=== PATIENT | female | born 1990 | race Caucasian/White ===

== ENCOUNTER 2019-12-31 10:29 | Emergency (ER) | payer OTHER, SELFPAY ==
[2019-12-31 10:48] VITALS: BP 129/86; PULSE 85; RESP 16; TEMP 36.1; O2SAT 100
--- NOTE | 2019-12-31 11:17 | ED.URI ---
HPI - URI/Sore Throat General Chief Complaint: Upper Respiratory Infection Stated Complaint: Ear/Nose/Throat Time Seen by Provider: 12/31/19 11:17 Source: patient and family History of Present Illness HPI Narrative: Patient presents with fever cough sore throat and runny nose for the past 2 days. No shortness of breath no chest pain. Has not taken thing [id number] for symptoms. No trouble swallowing no drooling. Normally healthy individual. Related Data Home Medications Medication Instructions Recorded Confirmed No Home Medications 12/31/19 12/31/19 Allergies Allergy/AdvReac Type Severity Reaction Status Date / Time azithromycin [From Zithromax] Allergy Hives Verified 12/31/19 10:53 meperidine [From Demerol] Allergy Unknown Verified 12/31/19 10:53 Penicillins Allergy Rash Verified 12/31/19 10:53 codeine AdvReac Nausea and Verified 12/31/19 10:53 Vomiting Review of Systems Review of Systems: Narrative: CONSTITUTIONAL: Denies fever, chills, or sweats. EYES: Denies visual changes, redness, or discharge. ENT: Denies rhinorrhea, congestion, sore throat, or otalgia. CARDIOVASCULAR: Denies chest pain, palpitations, or edema. RESPIRATORY: Denies cough or dyspnea. GASTROINTESTINAL: Denies abdominal pain, nausea, vomiting, or diarrhea. GENITOURINARY: Denies dysuria or hematuria. SKIN: Denies rash or itching. MUSCULOSKELETAL: Denies back pain, joint pain, or myalgia. NEUROLOGIC: Denies headache, numbness, or weakness. PSYCHIATRIC: Denies anxiety or depression. [facility] Social History Social History Smoking status: Never smoker Comments At time of signature, agree with nursing past medical, surgical, social and family history. There is no relevant family history pertinent to the presenting complaint Exam Narrative: Exam Narrative: GENERAL: Well-appearing, well-nourished, and in no acute distress. HEAD: Normocephalic, atraumatic. EYES: PERRLA and EOMI. ENT: Nares clear, no rhinorrhea or epistaxis. Mucous membranes moist. NECK: Supple. CHEST: Clear to auscultation. No respiratory distress. HEART: Regular rate and rhythm. No murmur heard. Normal peripheral pulses. ABDOMEN: Soft, nontender, nondistended, normal active bowel sounds. EXTREMITIES: Normal range of motion. No edema. SKIN: Warm, dry, no rash. NEURO: No focal deficits. Alert and oriented x3. [place] Coma Scale Eye Opening: Spontaneous 4 [place] Coma Scale Motor: Obeys Commands 6 [place] Coma Scale Verbal: Oriented 5 [place] Coma Scale Total 15 Course Vital Signs Vital signs: Vital Signs Temperature 36.1 C L 12/31/19 10:48 Pulse Rate 85 12/31/19 10:48 Respiratory Rate 16 12/31/19 10:48 Blood Pressure 129/86 12/31/19 10:48 Pulse Oximetry 100 12/31/19 10:48 Temperature 36.1 C L 12/31/19 10:48 Pulse Rate 85 12/31/19 10:48 Respiratory Rate 16 12/31/19 10:48 Blood Pressure 129/86 12/31/19 10:48 Pulse Oximetry 100 12/31/19 10:48 Please GIOVANNA schedule a followup visit with your personal physician for further evaluation and treatment. Including recheck and discussion of your blood pressure. If your symptoms persist, change or worsen significantly before you can contact your personal physician then please, without delay, go to the emergency department for further evaluation MDM - URI/Sore Throat Differential Diagnosis Differential diagnosis: Likely upper respiratory infection, otitis media, sinusitis, viral infection, bronchitis, influenza and pharyngitis Lab Data Labs: Influenza A Screen Negative Reference Range: Negative Influenza B Screen Negative Reference Range: Negative Strep Screen Presumptive Negative *(Reference Range: Negative)* Critical Care Time Critical Care Time Critical Care Time: No Discharge Plan Discharge Clinical Impression: Viral infection Upper respiratory infe
== END 2019-12-31 11:32 | disposition home or self-care (01) ==
PROVIDERS: Emergency Provider Nurse Practitioner Family
DX: B34.9 Viral infection, unspecified (principal); J06.9 Acute upper respiratory infection, unspecified
CPT/HCPCS: 87081; 87804; 87880; 99213; G0463

== ENCOUNTER 2023-11-01 08:21 | Emergency (ER) | payer OTHER, SELFPAY ==
--- NOTE | 2023-11-01 08:23 | ED.FEMALEGU ---
HPI - Female Genitourinary General Chief complaint: Urogenital-Female Stated complaint: Poss UTI Source: patient and RN notes reviewed Mode of arrival: ambulatory Limitations: no limitations History of Present Illness HPI Narrative: Patient is a 33-year-old female who presents to the [facility] with complaints of dysuria and vaginal discharge. Patient reports a white vaginal discharge. She states that the vaginal discharge started shortly after having intercourse with her . She states that they did use a dildo that was new the last time they had intercourse. She also reports dysuria and urinary frequency. She denies hematuria or flank pain. Denies recent fevers. She states that she does not have concerns about STDs at this time. Related Data Allergies Allergy/AdvReac Type Severity Reaction Status Date / Time azithromycin [From Zithromax] Allergy Intermediate Hives Verified 11/01/23 08:37 Penicillins Allergy Intermediate Hives Verified 11/01/23 08:37 meperidine [From Demerol] Allergy Unknown Unknown Verified 11/01/23 08:37 codeine AdvReac Intermediate Nausea and Verified 11/01/23 08:37 Vomiting Review of Systems Review of Systems: CONSTITUTIONAL: Denies fever, chills, or sweats. EYES: Denies visual changes, redness, or discharge. ENT: Denies otalgia and sore throat CARDIOVASCULAR: Denies chest pain, palpitations, or edema. RESPIRATORY: Denies cough or dyspnea. GASTROINTESTINAL: Denies abdominal pain, nausea, vomiting, or diarrhea. GENITOURINARY: Reports vaginal discharge and dysuria. Denies hematuria. SKIN: Denies rash or itching. MUSCULOSKELETAL: Denies back pain, joint pain, or myalgia. NEUROLOGIC: Denies headache, numbness, or weakness. Pertinent positives per HPI. PMFSH Social History Social History Smoking status: Never smoker Comments At the time of my signature, I reviewed and agree with the nursing past medical, surgical, social, and family history. There is no relevant family history pertinent to the patient complaint. Exam Narrative: GENERAL: This is a well-nourished, well-developed patient, in no apparent distress. HEAD: normocephalic, atraumatic. EYES: PERRL. Sclera clear/white. Vision is grossly intact. EARS: External ears normal, auditory canals clear and without drainage, TMs normal without perforation. Hearing grossly intact. NOSE: External nose normal with no obvious nasal discharge, nares without redness, no rhinorrhea. THROAT: Mucous membranes moist, posterior pharynx clear. NECK: Neck supple, non-tender without lymphadenopathy, masses or thyromegaly. CARDIOVASCULAR: Regular rate and rhythm without murmurs, gallops, or rubs. RESPIRATORY: Clear to auscultation. Breath sounds equal bilaterally. No wheezes, rales, or rhonchi. GASTROINTESTINAL: Abdomen soft, non-tender, nondistended. Bowel sounds are active. No hepato-splenomegaly, or palpable masses. No guarding. SKIN: warm, intact with no suspicious lesions or rash, good texture and turgor. NEURO: awake, alert, and oriented to person, place and time. There were no obvious focal neurologic abnormalities. EXTREMITIES: No clubbing, cyanosis, or edema. No joint tenderness, effusion, or edema noted. BACK: Nontender without deformity or crepitance. No flank tenderness. Course Course Level of Care: Express Care Visit Vital Signs Vital signs: Vital Signs Temperature 98.0 F 11/01/23 08:28 Pulse Rate 88 11/01/23 08:28 Respiratory Rate 20 11/01/23 08:28 Blood Pressure 135/88 11/01/23 08:28 Pulse Oximetry 100 11/01/23 08:28 Oxygen Delivery Room Air 11/01/23 08:28 Temperature 98.0 F 11/01/23 08:28 Pulse Rate 88 11/01/23 08:28 Respiratory Rate 20 11/01/23 08:28 Blood Pressure 135/88 11/01/23 08:28 Pulse Oximetry 100 11/01/23 08:28 Oxygen Delivery Room Air 11/01/23 08:28 Reviewed MDM - Female Genitourinary MDM Narrative Medical d
[2023-11-01 08:28] VITALS: BP 135/88; PULSE 88; RESP 20; TEMP 36.7; O2SAT 100
== END 2023-11-01 08:50 | disposition home or self-care (01) ==
PROVIDERS: Emergency Provider Nurse Practitioner
DX: B37.31 Acute candidiasis of vulva and vagina (principal); N30.01 Acute cystitis with hematuria
CPT/HCPCS: 81003; 87086; 87088; 99213; G0463

== ENCOUNTER 2024-08-18 15:58 | Emergency (ER) | payer SELFPAY ==
[2024-08-18 16:12] VITALS: BP 126/70; PULSE 86; RESP 20; TEMP 36.9; O2SAT 97
--- NOTE | 2024-08-18 16:14 | ED.URI ---
HPI - URI/Sore Throat General Chief Complaint: Upper Respiratory Infection Stated Complaint: throat/ears History of Present Illness HPI Narrative: 34-year-old female presented for complaint of sore throat bilateral ear pain. Onset today. Endorses painful swallow. She denies any cough, shortness of breath, wheezing, nausea, vomiting, fevers or chills. Taking DayQuil and NyQuil for symptoms. Children with similar symptoms. Related Data Allergies Allergy/AdvReac Type Severity Reaction Status Date / Time azithromycin [From Zithromax] Allergy Intermediate Hives Verified 11/01/23 08:37 Penicillins Allergy Intermediate Hives Verified 11/01/23 08:37 meperidine [From Demerol] Allergy Unknown Unknown Verified 11/01/23 08:37 codeine AdvReac Intermediate Nausea and Verified 11/01/23 08:37 Vomiting Review of Systems Review of Systems: CONSTITUTIONAL: Denies body aches, fever, chills, or sweats. EYES: Denies visual changes, redness, or discharge. ENT: Reports throat pain Denies rhinorrhea, congestion CARDIOVASCULAR: Denies chest pain, palpitations, or edema. RESPIRATORY: Denies dyspnea. GASTROINTESTINAL: Denies abdominal pain, nausea, vomiting, or diarrhea. SKIN: Denies rash, itching, or wounds. MUSCULOSKELETAL: Denies back pain, joint pain, or myalgia. NEUROLOGIC: Denies headache PMFSH Social History Social History Smoking status: Never smoker Exam Narrative: GENERAL: mildly Ill-appearing, no acute distress. EYES: conjunctivae clear ENT: Mucous membranes moist. TMs pearly osuna with normal light reflex bilaterally; no tragal tenderness. Oropharynx erythematous without lesions. Tonsils enlarged 1+ and without exudate. No drooling, no hoarseness, no trismus, uvula midline. No tripod positioning, hot potato voice, or soft palate swelling. NECK: Supple. No lymphadenopathy CHEST: Clear to auscultation, breath sounds equal. No respiratory distress, speaks in full sentences. HEART: Regular rate and rhythm. No murmur heard. SKIN: Warm, dry, no rash. NEURO: Alert and oriented x3. Course Course Emergency Course: Patient is aware of diagnosis, understands and agrees to treatment plan. Anticipatory guidance given. Patient agrees to follow-up as directed and is aware of reasons to seek care at the emergency department. Portions of this record may have been created with voice recognition software Level of Care: Express Care Visit Vital Signs Vital signs: Vital Signs Temperature 98.4 F 08/18/24 16:12 Pulse Rate 86 08/18/24 16:12 Respiratory Rate 20 08/18/24 16:12 Blood Pressure 126/70 08/18/24 16:12 Pulse Oximetry 97 08/18/24 16:12 Oxygen Delivery Room Air 08/18/24 16:12 Temperature 98.4 F 08/18/24 16:12 Pulse Rate 86 08/18/24 16:12 Respiratory Rate 20 08/18/24 16:12 Blood Pressure 126/70 08/18/24 16:12 Pulse Oximetry 97 08/18/24 16:12 Oxygen Delivery Room Air 08/18/24 16:12 MDM - URI/Sore Throat MDM Narrative Medical decision making narrative: POS strep result reviewed with pt. Advise supportive treatments. Patient is appropriate for outpatient treatment and follow-up. Differential Diagnosis Differential diagnosis: Likely upper respiratory infection, viral infection and pharyngitis Lab Data Labs: Lab Results 08/18/24 Range/Units 16:32 POC Grp A Strep Screen Positive (Negative) Discharge Plan Discharge Clinical Impression: Strep pharyngitis Patient Disposition: Home, Self-Care Condition: Stable Instructions: Antibiotic Form, Strep Throat (ED) Additional Instructions: - Take the antibiotic as directed. Fever and sore throat typically resolve within one to three days. Most patients can return to work, after 12 to 24 hours of antibiotic therapy, provided you are fever free and otherwise well. -Eat and drink things that are easy to swallow, like soft foods, cook helper preserves
[2024-08-18 16:48] LABS: EDSTREPNEGPOS1 Positive (Negative)
== END 2024-08-18 17:19 | disposition home or self-care (01) ==
PROVIDERS: Emergency Provider Nurse Practitioner Family
DX: J02.0 Streptococcal pharyngitis (principal)
CPT/HCPCS: 87880; 99213; G0463

== ENCOUNTER 2024-12-24 11:52 | Emergency (ER) | payer MEDICAID, OTHER, SELFPAY ==
[2024-12-24 12:06] VITALS: BP 124/84; PULSE 78; RESP 18; TEMP 36.6; O2SAT 99
--- NOTE | 2024-12-24 13:43 | ED_ITS ---
HPI - URI/Sore Throat General Chief Complaint: Upper Respiratory Infection Stated Complaint: throat scratchy and sore Time Seen by Provider: 12/24/24 13:30 Source: patient, RN notes reviewed and old records reviewed Mode of arrival: ambulatory Limitations: no limitations History of Present Illness HPI Narrative: 34 year old female presents to [facility] care with complaints of sore scratchy throat which started last night, has not had any fevers or body aches or any cough. Mother reports that she has been taking DayQuil for her symptoms. MD elicited complaint: sore throat Onset (ago): day(s) (last night) Pain scale (0-10): 3 Able to tolerate fluids by mouth: Yes Exacerbating factors: swallowing Treatments prior to arrival: other (DayQuil) Related Data Allergies Allergy/AdvReac Type Severity Reaction Status Date / Time azithromycin (From Zithromax) Allergy Intermediate Hives Verified 11/01/23 08:37 Penicillins Allergy Intermediate Hives Verified 11/01/23 08:37 meperidine (From Demerol) Allergy Unknown Unknown Verified 11/01/23 08:37 codeine AdvReac Intermediate Nausea and Verified 11/01/23 08:37 Vomiting Review of Systems Review of Systems: CONSTITUTIONAL: Denies malaise, chills, sweats, or fever. EYES: Denies visual changes, redness, or discharge. ENT: Reports rhinorrhea, congestion,no sinus pain,no otalgia and positive for sore throat. CARDIOVASCULAR: Denies chest pain, palpitations, or edema. RESPIRATORY: Reports no cough.? Denies dyspnea. GASTROINTESTINAL: Denies abdominal pain, nausea, vomiting, diarrhea SKIN: Denies rash or itching. MUSCULOSKELETAL: Denies myalgia. NEUROLOGIC: Denies headache. All systems reviewed & are unremarkable except as noted in HPI and below PMFSH Past Medical History Medical History (Updated 12/25/24 @ 20:20 by Dianne Mota NP) Urinary tract infection Strep pharyngitis Social History Social History (Updated 12/25/24 @ 20:20 by Dianne Mota NP) Smoking status: Never smoker Alcohol intake: current Alcohol use details: rare social Substance use type: does not use Living arrangements: with family Gender identity (if verbalized by the patient): Female Comments At time of signature, agree with nursing past medical, surgical, social and family history. There is no relevant family history pertinent to the presenting complaint Exam Narrative: GENERAL: Well-appearing, well-nourished, and in no acute distress. HEAD: Normocephalic EYES: PERRLA, conjunctivae clear ENT: Nares clear, turbinates edematous and erythematous, clear discharge. Mucous membranes moist. TM pearly osuna with dull light reflex bilaterally; no tragal tenderness. Oropharynx erythematous without lesions. Tonsils red minimally enlarged and throat without exudate, no drooling, no hoarseness, no trismus, uvula midline. NECK: Supple. No lymphadenopathy CHEST: Clear to auscultation, breath sounds equal. No wheezing, rhonchi, rales, or stridor. No respiratory distress, speaks in full sentences.no cough noted SAO2 99% on room air HEART: Regular rate and rhythm. No murmur heard. SKIN: Warm, dry, no rash. NEURO: Alert and oriented x3. PSYCH: Normal mood and affect Course Course Emergency Course: Patient is aware of diagnosis, understands and agrees to treatment plan.? Anticipatory guidance given.? Patient agrees to follow-up as directed and is aware of reasons to seek care at the emergency department. Portions of this record may have been created with voice recognition software Level of Care: Express Care Visit Vital Signs Vital signs: Vital Signs Temperature 36.6 C 12/24/24 12:06 Pulse Rate 78 12/24/24 12:06 Respiratory Rate 18 12/24/24 12:06 Blood Pressure 124/84 12/24/24 12:06 Pulse Oximetry 99 12/24/24 12:06 Oxygen Delivery Room Air 12/24/24 12:06 Temperature 36.6 C 12/24/24 12:06 Pulse Rate 78 12/24/24 12:06 Respiratory Rate 18 12/24/24 12:06 Blood Pressure 124/84 12/24/24 12:06 Pulse Oximetry 99 12/24/24 12:06 Oxygen Delivery Room Air 12/24/24 12:06 Reviewed MDM - URI/Sore Throat MDM Narrative Medical decision making narrative: Differential diagnosis considered: [place] virus, strep pharyngitis, allergic rhinitis, upper respiratory tract infection, sinusitis, rhinosinusitis, nasopharyngitis. viral pharyngitis, otitis media, otitis externa, pneumonia, bronchitis, viral cough syndrome, viral syndrome, and influenza.? Exam findings show no acute concerns or changes; patient is non-toxic appearing and is in no distress.? Patient is appropriate for outpatient treatment and follow-up. Differential Diagnosis Differential diagnosis: Likely upper respiratory infection, viral infection, pharyngitis and other (strep pharyngitis) Medical Records Attestation: I reviewed the patient's medical records. Lab Data Attestation: I reviewed the patient's lab results. Lab results narrative: strep screen positive Labs: Lab Results 12/24/24 Range/Units 13:56 POC Grp A Strep Screen Positive (Negative) Critical Care Time Critical Care Time Critical Care Time: No Discharge Plan Discharge Clinical Impression: Acute streptococcal pharyngitis Patient Disposition: Home, Self-Care Condition: Stable Instructions: Antibiotic Form, Strep Throat (ED) Additional Instructions: You tested positive for Group A strep . Take the entire course of antibiotics. Throw away your current toothbrush and begin using a new toothbrush in 48 hours in order to prevent re-infection. Sanitize all reusable water bottles . Do not share items with others. Salt water gargles may alleviate some of the throat discomfort. You can take tylenol or ibuprofen per the package instructions for pain/fever. If your symptoms persist, change or worsen significantly before you can contact your personal physician then please, without delay, go to the emergency department for further evaluation. Follow-up with PCP in 7-10 days or sooner if needed Follow up with PCP soon in regards to your blood pressure which is elevated above threshold for referral. Blood pressure above 120/80 may indicate pre- hypertension. Minimal elevation 124/84 Patient Language: [place]i Prescriptions: New cefdinir 300 mg capsule 300 mg PO Q12H Qty: 20 0RF Follow-up/Referrals: PHYSICIAN,HAND GLUER AND SLICER [Primary Care Provider] - Stand Alone Forms: Work/School Release IP Time of Disposition: 13:51 Quality [place] Coma Scale Eyes: Open Verbal: Oriented and Alert Motor: Follows Commands [place] Coma Total Score: 15
[2024-12-24 13:58] LABS: EDSTREPNEGPOS1 Positive (Negative)
== END 2024-12-24 14:10 | disposition home or self-care (01) ==
PROVIDERS: Emergency Provider Registered Nurse
DX: J02.0 Streptococcal pharyngitis (principal)
CPT/HCPCS: 87880; 99213; G0463

== ENCOUNTER 2025-01-28 17:44 | Emergency (ER) | payer OTHER, SELFPAY ==
--- NOTE | 2025-01-28 18:01 | ED.FEMALEGU ---
HPI - Female Genitourinary General Chief complaint: Urogenital-Female Stated complaint: Urinary Problem Time Seen by Provider: 01/28/25 18:01 Source: patient and RN notes reviewed Mode of arrival: ambulatory Limitations: no limitations History of Present Illness HPI Narrative: 34-year-old female presents concern for vaginal itching, white vaginal discharge, vaginal irritation, increased frequency. She denies dysuria. Denies abdominal pain, nausea, vomiting, fever, back pain. Denies intervention. MD elicited complaint: genital itching Related Data Allergies Allergy/AdvReac Type Severity Reaction Status Date / Time azithromycin (From Zithromax) Allergy Intermediate Hives Verified 11/01/23 08:37 Penicillins Allergy Intermediate Hives Verified 11/01/23 08:37 meperidine (From Demerol) Allergy Unknown Unknown Verified 11/01/23 08:37 codeine AdvReac Intermediate Nausea and Verified 11/01/23 08:37 Vomiting Review of Systems Review of Systems: CONSTITUTIONAL: Denies malaise, chills, sweats, or fever. CARDIOVASCULAR: Denies chest pain, palpitations, or edema. RESPIRATORY: Denies cough or dyspnea. GASTROINTESTINAL: Denies abdominal pain, nausea, vomiting, diarrhea GENITOURINARY: Reports dysuria, frequency, urgency, suprapubic pressure. Denies flank pain or hematuria. SKIN: Denies rash or itching. MUSCULOSKELETAL: Denies back pain or myalgia. All systems reviewed & are unremarkable except as noted in HPI and below PMFSH Past Medical History Medical History (Updated 01/28/25 @ 18:10 by Emilia Muir NP) Urinary tract infection Strep pharyngitis Social History Social History (Updated 12/25/24 @ 20:20 by Dianne Mota NP) Smoking status: Never smoker Alcohol intake: current Alcohol use details: rare social Substance use type: does not use Living arrangements: with family Gender identity (if verbalized by the patient): Female Comments At time of signature, agree with nursing past medical, surgical, social and family history. There is no relevant family history pertinent to the presenting complaint Exam Narrative: GENERAL: Well-appearing, well-nourished, and in no acute distress. HEAD: Normocephalic. EYES: PERRLA, conjunctivae clear. NECK: Supple. No lymphadenopathy CHEST: Clear to auscultation. No respiratory distress. HEART: Regular rate and rhythm. ABDOMEN: Soft, nontender upon palpation, nondistended, normal active bowel sounds, no palpable or pulsatile masses, no guarding. No CVA tenderness SKIN: Warm, dry, no rash. NEURO: Alert and oriented x3. PSYCH: Normal mood and affect Course Course Emergency Course: Patient is aware of diagnosis, understands and agrees to treatment plan. Anticipatory guidance given. Patient agrees to follow-up as directed and is aware of reasons to seek care at the emergency department. Portions of this record may have been created with voice recognition software Level of Care: Express Care Visit Vital Signs Vital signs: Reviewed. MDM - Female Genitourinary MDM Narrative Medical decision making narrative: Exam findings and UA show no acute concerns or changes; patient is non-toxic appearing and is in no distress. Patient is appropriate for outpatient treatment and follow-up. Differential Diagnosis Differential diagnosis: Likely urinary tract infection and cystitis Critical Care Time Critical Care Time Critical Care Time: No Discharge Plan Discharge Clinical Impression: Vaginal itching Patient Disposition: Home, Self-Care Condition: Stable Instructions: Yeast Infection (ED) Additional Instructions: We will send a urine culture to the lab; if the culture identifies an organism that requires antibiotic, you will receive a phone call from an urgent care staff member and an appropriate antibiotic will be prescribed. Take medication as prescribed, use topical cream as needed for comfort. When you take an antibiotic in the future take a probiotic to avoid future yeast infections. Please follow with your doctor for further evaluation. Patient Language: [place] Prescriptions: New fluconazole 150 mg tablet 150 mg PO Q48H 3 Days Qty: 2 0RF Rx Instructions: take one dose now, and a second dose if symptoms remain in 48 hours Vagicaine 5-2 % cream 1 applic topical TID PRN (Reason: skin irritation) Qty: 28 0RF Follow-up/Referrals: PHYSICIAN,REFRIGERATION PLANT OPERATOR [Primary Care Provider] - Time of Disposition: 18:10
[2025-01-28 18:08] LABS: EDUAAPPEAR Cloudy; EDUABILI Negative (Negative); EDUABLOOD Trace (Negative); EDUACOLOR1 Yellow; EDUAGLUCOSE Negative (Negative); EDUAKETONE Negative (Negative); EDUALEUKO 1+ (Negative); EDUANITRATE Negative (Negative); EDUAPROTEIN 1+ (Negative); EDUAUROBILI 0.2
== END 2025-01-28 18:19 | disposition home or self-care (01) ==
PROVIDERS: Emergency Provider Nurse Practitioner
DX: N89.8 Other specified noninflammatory disorders of vagina (principal)
CPT/HCPCS: 81003; 87086; 99213; G0463

== ENCOUNTER 2025-07-28 13:03 | Emergency (ER) | payer OTHER, SELFPAY ==
--- NOTE | 2025-07-28 13:05 | ED_ITS ---
HPI - Female Genitourinary General Chief complaint: Urogenital-Female Stated complaint: Poss UTI Time Seen by Provider: 07/28/25 13:05 Source: patient Mode of arrival: ambulatory Limitations: no limitations History of Present Illness HPI Narrative: Shannon is a 35-year-old female patient presenting to the clinic today with complaints of a possible urinary tract infection x2 weeks. She reports she is having burning with urination, frequency and some right lower side pain. She states symptoms have been going on for 2 weeks. Has tried lhas-omo-jldwosf cranberry pills to help alleviate some symptoms. She denies any fevers, chills, nausea, vomiting, or flank pain. Denies any concern for STIs. No vaginal discharge but does note a slight odor. Last menstrual period was at the beginning of last month. She is due to started any time. History of tubal ligation. Related Data Allergies Allergy/AdvReac Type Severity Reaction Status Date / Time azithromycin (From Zithromax) Allergy Intermediate Hives Verified 07/28/25 13:17 Penicillins Allergy Intermediate Hives Verified 07/28/25 13:17 meperidine (From Demerol) Allergy Unknown Unknown Verified 07/28/25 13:17 codeine AdvReac Intermediate Nausea and Verified 07/28/25 13:17 Vomiting Review of Systems Review of Systems: Pertinent positives per HPI. Patient denies any fever, chills, rash, headache, visual changes, dizziness, cough, runny nose, sore throat, shortness of breath, chest pain, palpitations, nausea, vomiting, diarrhea, constipation, abdominal pain, or any urinary issues. [facility] Past Medical History Medical History Urinary tract infection Strep pharyngitis Social History Social History Smoking status: Never smoker Alcohol intake: current Alcohol use details: rare social Substance use type: does not use Living arrangements: with family Gender identity (if verbalized by the patient): Female Comments At the time of my signature, I reviewed and agree with the nursing past medical, surgical, social, and family history. There is no relevant family history pertinent to the patient complaint. Exam Narrative: General: Well-developed, obese, in no apparent distress. Head: Normocephalic, atraumatic. Cardio: Regular rate and rhythm, s1 and s2 normal, no murmur appreciated. Resp: Clear to auscultation bilaterally, no rhonchi, rales, wheezing or rubs. Abdomen: Soft, pliable, bowel sounds present in all quadrants, suprapubic tender to palpation, no organomegly, no CVAT tenderness. Course Course Emergency Course: Portions of this record may have been created with voice recognition software. Level of Care: Express Care Visit Vital Signs Vital signs: Vital Signs Temperature 36.4 C L 07/28/25 13:13 Pulse Rate 82 07/28/25 13:13 Respiratory Rate 16 07/28/25 13:13 Blood Pressure 131/89 07/28/25 13:13 Pulse Oximetry 100 07/28/25 13:13 Oxygen Delivery Room Air 07/28/25 13:13 Temperature 36.4 C L 07/28/25 13:13 Pulse Rate 82 07/28/25 13:13 Respiratory Rate 16 07/28/25 13:13 Blood Pressure 131/89 07/28/25 13:13 Pulse Oximetry 100 07/28/25 13:13 Oxygen Delivery Room Air 07/28/25 13:13 Vital signs reviewed MDM - Female Genitourinary MDM Narrative Medical decision making narrative: At the time of visit patient is resting comfortably on the exam table. Patient appears to be nontoxic. Urinalysis dip was ordered. Complaints of a possible urinary tract infection x2 weeks. She reports she is having burning with u rination, frequency and some right lower side pain. She states symptoms have been going on for 2 weeks. Has tried bjcr-meb-duhotbi cranberry pills to help alleviate some symptoms. She denies any fevers, chills, nausea, vomiting, or flank pain. Denies any concern for STIs. No vaginal discharge but does note a slight odor. Last menstrual period was at the beginning of last month. She is due to started any time. History of tubal ligation. On exam patient has mild suprapubic tenderness, bowel sounds present all 4 quadrants, no CVAT tenderness. Labs: Urinalysis dip was performed and shows trace of ketones and 1+ leukocyte. We will send urine for culture. Plan: I suspect patient has UTI. Prescription for Bactrim was sent to the pharmacy. Supportive measures were discussed with the patient and they voiced understanding discharge instructions and agrees to treatment plan. Return precautions reviewed Differential Diagnosis Differential diagnosis: Likely urinary tract infection and cystitis Lab Data Labs: Lab Results 07/28/25 Range/Units 13:23 POC Urine Color Dark POC Urine Clarity Cloudy POC Urine pH 6.5 POC Ur Specif Zirconia 1.025 POC Urine Protein Negative (Negative) POC Ur Glucose (UA) Negative (Negative) POC Urine Ketones Trace (Negative) POC Urine Blood Negative (Negative) POC Urine Nitrite Negative (Negative) POC Urine Bilirubin Negative (Negative) POC Urine Urobilinogen 0.2 POC U Leukocyte Esteras 1+ (Negative) Discharge Plan Discharge Clinical Impression: Urinary tract infection Qualifiers: Urinary tract infection type: acute cystitis Hematuria presence: without hematuria Qualified Code(s): N30.00 - Acute cystitis without hematuria Patient Disposition: Home Condition: Stable Instructions: Antibiotic Form, Urinary Tract Infection in Women (ED) Additional Instructions: Urinalysis shows trace of ketone and 1+ leukocyte. We will send urine for culture Take Bactrim as prescribed Increase fluids and stay well hydrated Wipe front to back. May use wet wipes. Avoid tub baths If sexually active- pee before and after intercourse. Wear cotton panties Avoid tight clothing up against the genitals Follow up with your PCP in 1 week if symptoms persist. Patient Language: Moldovan Prescriptions: New sulfamethoxazole-trimethoprim [Bactrim DS] 800-160 mg tablet 1 tablet PO Q12H 5 Days Qty: 10 0RF Follow-up/Referrals: PHYSICIAN,UNIFIED COMMUNICATIONS ARCHITECT [Primary Care Provider, Internal Medicine] Stand Alone Forms: Work/School Release IP Time of Disposition: 13:30 Quality NIHSS Nursing Documentation ED NIHSS nursing documentation: reviewed/agree
[2025-07-28 13:13] VITALS: BP 131/89; PULSE 82; RESP 16; TEMP 36.4; O2SAT 100
[2025-07-28 13:31] LABS: EDUAAPPEAR Cloudy; EDUABILI Negative (Negative); EDUABLOOD Negative (Negative); EDUACOLOR1 Dark; EDUAGLUCOSE Negative (Negative); EDUAKETONE Trace (Negative); EDUALEUKO 1+ (Negative); EDUANITRATE Negative (Negative); EDUAPH 6.5; EDUAPROTEIN Negative (Negative); EDUASPGRAVITY 1.025; EDUAUROBILI 0.2
== END 2025-07-28 13:40 | disposition home or self-care (01) ==
PROVIDERS: Emergency Provider Nurse Practitioner Family
DX: N30.00 Acute cystitis without hematuria (principal)
CPT/HCPCS: 81003; 87086; 99213; G0463

== ENCOUNTER 2025-07-29 09:21 | Emergency (ER) | payer OTHER, SELFPAY ==
--- NOTE | 2025-07-29 09:23 | ED_ITS ---
HPI - Skin/Abscess/Foreign Bdy General Chief complaint: Skin/Abscess/Foreign Body Stated complaint: Rash Time Seen by Provider: 07/29/25 09:32 Source: patient and RN notes reviewed Mode of arrival: ambulatory Limitations: no limitations History of Present Illness HPI narrative: 35-year-old female presents concern for rash on her left arm. She reports slightly itchy rash that she noticed this morning. My she started taking Bactrim yesterday for urinary tract infection. She denies rash anywhere else. Denies swollen lips, swollen tongue, trouble breathing, diarrhea, nausea, vomiting. She does not know any other trigger for the rash. MD complaint: rash Related Data Allergies Allergy/AdvReac Type Severity Reaction Status Date / Time azithromycin (From Zithromax) Allergy Intermediate Hives Verified 07/29/25 09:38 Penicillins Allergy Intermediate Hives Verified 07/29/25 09:38 amoxicillin Allergy Mild Hives Verified 07/29/25 09:38 meperidine (From Demerol) Allergy Unknown Unknown Verified 07/29/25 09:38 codeine AdvReac Intermediate Nausea and Verified 07/29/25 09:38 Vomiting Review of Systems Review of Systems: CONSTITUTIONAL: Denies malaise, chills, sweats, or fever. EYES: Denies redness, or discharge. ENT: Denies rhinorrhea, congestion, swollen lips, swollen tongue CARDIOVASCULAR: Denies chest pain, palpitations, or edema. RESPIRATORY: Denies cough or dyspnea. GASTROINTESTINAL: Denies abdominal pain, nausea, vomiting SKIN: Reports rash on the left MUSCULOSKELETAL: Denies joint pain or myalgia. NEUROLOGIC: Denies headache. All systems reviewed & are unremarkable except as noted in HPI and below PMFSH Past Medical History Medical History Urinary tract infection Strep pharyngitis Social History Social History Smoking status: Never smoker Alcohol intake: current Alcohol use details: rare social Substance use type: does not use Living arrangements: with family Gender identity (if verbalized by the patient): Female Comments At time of signature, agree with nursing past medical, surgical, social and family history. There is no relevant family history pertinent to the presenting complaint Exam Narrative: GENERAL: Well-appearing, well-nourished, and in no acute distress. HEAD: Normocephalic, atraumatic. EYES: PERRLA, conjunctivae clear, and EOMI. ENT: Mucous membranes moist. Oropharynx without edema, erythema or lesions. NECK: Supple. No lymphadenopathy CHEST: Clear to auscultation. No respiratory distress. HEART: Regular rate and rhythm. SKIN: Warm, dry. 3 Isolated patches of raised erythema approximately 3 cm in diameter each noted to the left arm NEURO: Alert and oriented x3. PSYCH: Normal mood and affect Course Course Emergency Course: Patient is aware of diagnosis, understands and agrees to treatment plan. Anticipatory guidance given. Patient agrees to follow-up as directed and is aware of reasons to seek care at the emergency department. Portions of this record may have been created with voice recognition software Level of Care: Express Care Visit Vital Signs Vital signs: Vital Signs Temperature 98.0 F 07/29/25 09:28 Pulse Rate 87 07/29/25 09:28 Respiratory Rate 20 07/29/25 09:28 Blood Pressure 124/80 07/29/25 09:28 Pulse Oximetry 100 07/29/25 09:28 Oxygen Delivery Room Air 07/29/25 09:28 Temperature 98.0 F 07/29/25 09:28 Pulse Rate 87 07/29/25 09:28 Respiratory Rate 20 07/29/25 09:28 Blood Pressure 124/80 07/29/25 09:28 Pulse Oximetry 100 07/29/25 09:28 Oxygen Delivery Room Air 07/29/25 09:28 Reviewed. MDM - Skin/Abscess/Foreign Bdy MDM Narrative Medical decision making narrative: Does not appear at this time to be erythema multiforme, bullous, SJS, TEN; no evidence at this time to suggest RMSF, endocarditis or Lyme disease; patient looks well, nontoxic and is tolerating oral intake; no neurologic signs or symptoms; no headache, photophobia or neck pain; afebrile; appropriate for initial outpatient treatment; discussed the importance of follow-up, patient agrees; question, viral exanthema, contact dermatitis, allergic dermatitis, eczema, urticaria, [ xx ]. No soft palate or uvula edema, no tongue, lip edema or other mucosal involvement, no respiratory compromise, no stridor, no wheez ing, no wheezing, no history of syncope, no hypotension, no nausea, vomiting, or diarrhea. Instructed patient to go to nearest ER immediately for any worsening symptoms including but not limited to: fever, spreading rash, pain, sore throat, headache, dizziness, chest pain, trouble breathing, or any symptoms concerning to the patient. Critical Care Time Critical Care Time Critical Care Time: No Discharge Plan Discharge Clinical Impression: Rash Patient Disposition: Home Condition: Stable Instructions: Acute Rash (ED) Additional Instructions: You can stop the antibiotic your currently on his start in the new antibiotic prescribed. Follow-up with your doctor regarding this rash and if you should no longer take sulfa drugs. Wash the area with gentle soap and water only. Use skin cream as prescribed to reduce itchiness Avoid scratching when possible to prevent worsening of the condition and disruption of the skin that could lead to bacterial infection To relieve itching, place a cool washcloth or some ice over the area that itches, rather than scratching Follow up with primary care provider or seek ER if you have trouble breathing, become hoarse, or start wheezing, develop belly cramps, vomiting or feel dizzy. Patient Language: Indonesian Prescriptions: New ciprofloxacin HCl 500 mg tablet 500 mg PO Q12H 7 Days Qty: 14 0RF hydrocortisone 1 % cream 1 applic topical TID PRN (Reason: itching) Qty: 28.35 0RF Discontinued sulfamethoxazole-trimethoprim [Bactrim DS] 800-160 mg tablet 1 tablet PO Q12H 5 Days Qty: 10 0RF Follow-up/Referrals: UNKNOWN,DOCTOR [Non-Staff] Time of Disposition: 09:41
[2025-07-29 09:28] VITALS: BP 124/80; PULSE 87; RESP 20; TEMP 36.7; O2SAT 100
== END 2025-07-29 09:45 | disposition home or self-care (01) ==
PROVIDERS: Emergency Provider Nurse Practitioner
DX: R21 Rash and other nonspecific skin eruption (principal)
CPT/HCPCS: 99213; G0463

== ENCOUNTER 2025-11-25 15:34 | Emergency (ER) | payer OTHER, SELFPAY ==
--- OUTSIDE RECORDS SUMMARY | 2025-11-25 15:37 | XMS_ITS | Clinical Summary ---
Author Organization [facility] Address [address] [place] [address] Care Team Providers Care Cigar Inspector Name Role Phone Unavailable Primary Care Provider Unavailabl e Source Comments [facility],non-owned Affiliates and Associated Physician Practices is amultiple site organization consisting of ambulatory clinics and hospital sitesin [place], [place], [place] and [place]. This disclosure is being madepursuant to the Care Everywhere program and may not contain all information available regarding this patient. Last updated 18.[facility] [employer] Allergies Active Allergy Reactions Criticality Noted Date Comments Codeine Urticaria Medium 10/29/2025 Penicillins Urticaria Medium 10/29/2025 Sulfa Antibiotics Urticaria Medium 10/29/2025 Encounters Date Type Department Care Team Description 10/29/2025 8:05 AM ENGRAVER TIRE MOLD Video Visit [facility] [employer] [facility] [address] [address] Marla Evans, OLGA-PATIENT SAFETY ATTENDANT Referral of patient without examination or treatment from Last 3 Months Social History Tobacco Use Types Packs/Day Years Used Date Smoking Tobacco: Never Assessed PHQ-2 Answer Date Recorded Patient Health Questionnaire-2 Score 0 10/29/2025 Comments Unknown Sex and Gender Information Value Date Recorded Sex Assigned at Not on file Legal Sex Female 1:09 PM CDT Gender Identity Female 10/29/2025 7:56 AM ENGRAVER TIRE MOLD Sexual Orientation Straight 10/29/2025 7: 56 AM ENGRAVER TIRE MOLD Plan of Treatment Health Maintenance Due Date Last Done Comments HIV SCREENING 2007 HEPATITIS C SCREENING 07/12/2010 DTAP/TDAP/TD VACCINES (1 - Tdap) 2011 HEPATITIS B VACCINE (1 of 3 - 19+ 3-dose series) 2011 PAP SMEAR 2013 HPV VACCINE (1 - 3-dose SCDM series) 2019 COVID-19 VACCINE (2024-2 6 season) 2025 INFLUENZA VACCINE (#1) 2025 12/12/2011 ZOSTER VACCINE (1 of 2) 2042 DEPRESSION SCREENING Completed 10/29/2025 HIB VACCINE Aged Out No longer eligi ble based on patient's age to complete this topic MENINGOCOCCAL (Group B) VACC INE SHARED DECISION-MAKING Aged Out No longer eligibl e based on patient's age to complete this topic MENINGOCOCCAL GROUPS A/C/Y/W VACCINE Aged Out No longer eligible b ased on patient's age to complete this topic PNEUMOCOCCAL VACCINE Aged Out No long er eligible based on patient's age to complete this topic Insurance [facility] Address: [id number] [place] [address]
[2025-11-25 15:39] VITALS: BP 132/75; PULSE 83; RESP 16; TEMP 36.9; O2SAT 99
--- OUTSIDE RECORDS SUMMARY | 2025-11-25 15:39 | XMS_ITS | Data Portability ---
Author Organization [facility] ROM[facility] Address [address] [place] [address] Care Team Providers Care Proof Sorter Name Role Phone NEEL PEREZ Demolition Engineer Assessment No assessment recorded. Plan of Treatment Reminders Order Date Submit Date Provider Last Modified By Organization Details Last Modified Time Details Appointments None recorded. Lab prolactin , serum 2020 021 [facility], [address] [place] [address], [address], 1 10:01:24 TSH, ultra-sen sitive, serum 2020 021 MA[facility]ON [facility], [address] [place] [address], [place], [address], 1 10:01:23 prolactin , serum 2019 020 [facility], [address] [place] [address], [place] [address], [place], [address], 0 09:38:48 FSH (follicle -stimulat ing hormone), serum 2019 020 [facility], [address] [place] [address], [place] [address], [place], [address], 0 09:38:47 TSH, ultra-sen sitive, serum 2019 020 [facility], [address] [place] [address], [address], [place], [address], 0 09:38:47 urinalysi s, dipstick 2018 019 In-Office Order, Internal Use Only DO Not Attach Compendium DO Not Attach Compendium, Do Not Delete/merge, [id number] 17:04:12 Referral counselin g referral 2019 020 [email or web address] (), [address] , [place], [address], 0 10:19:57 Procedures None recorded. Surgeries salpingec rosibel, laparosco pic (SURG) 2018 019 ZOYA Bazan [facility]), [address] [facility] [place], [address], 9 11:24:03 Imaging None recorded. Medication Orders sertralin e 50 mg tablet 2019 020 [facility], [address] [place] [address], [address], 1 09:48:42 Patient TargetsNo targets recorded. Patient Instructions Encounter Date Encounter Id Patient Instructions Last Modified By Organization Details Last Modified Time 12/08/2020 [id number] galactorrhea: care instructions [email or web address] Not available 12/08/2020 10:01:18 Reason for Referral Counseling Referral for Posi tive screening for depression on PHQ-9 (Patient Health Questionnaire 9) Referring Physician: Neel Perez, MANAGER LINUX, Encounter Date: 12/04/2019 Results Created Date Observation Date Name Description Value Unit Range Abnormal Flag Note LastModifiedBy Organization Detail LastModifiedTime 06/11/20 19 06/15/2019 strep tococ cus group B, cultu re, unspe cifie d speci men strep gp B culture+rflx Negati ve negati ve Cente rs for Disea se Contr ol and Preve ntion (CDC) and Ameri can Congr ess of Obste trici ans and Gynec ologi sts (ACOG ) guide lines for preve ntion of perin atal group B strep tococ joe (GBS) disea se speci fy co-co llect ion of a vagin al and recta l swab speci men to maxim ize sensi tivit y of GBS detec tion. Per the CDC and ACOG, swabb ing both the lower vagin a and rectu m subst antia lly incre ases the yield of detec tion julianna red with sampl ing the vagin a alone . Penic illin G, ampic illin , or cefaz miley are indic ated for intra partu m proph ylaxi s of perin atal GBS colon izati on. Refle x susce ptibi lity testi ng shoul d be perfo rmed prior to use of clind amyci n only on GBS isola sasha from penic illin -norma rgic women who are consi dered a high risk for anaph ylaxi s. Treat ment with vanco mycin witho ut addit ional testi ng is warra nted if resis tance to clind amyci n is noted . Not Available [facility] ([facility]) [address] [facility], [place], [address], 06/15/2019 10:35:39 06/11/2006/11/2019 urina lysis , dipst ick Protein Negati ve Not Available In-Office Order Internal Use Only DO Not Attach Compendium DO Not Attach Compendium, Do Not Delete/merge, [id number] 06/11/2019 10:57:37 06/11/2006/11/2019 urina lysis , dipst ick Glucose 500 Not Available In-Office Order Internal Use Only DO Not Attach Compendium DO Not Attach Compendium, Do Not Delete/merge, [id number] 06/11/2019 10:57:37 06/18/2006/18/2019 urina lysis , dipst ick Protein Negati ve Not Available In-Office Order Internal Use Only DO Not Attach Compendium DO Not Attach Compendium, Do Not Delete/merge, [id number] 06/18/2019 12:23:51 06/18/202019 urina lysis , dipst ick Glucose 250 Not Available In-Office Order Internal Use Only DO Not Attach Compendium DO Not Attach Compendium, Do Not Delete/merge, [id number] 06/18/2019 12:23:51 06/25/2006/25/2019 urina lysis , dipst ick Protein Trace Not Available In-Office Order Internal Use Only DO Not Attach Compendium DO Not Attach Compendium, Do Not Delete/merge, [id number] 06/25/2019 14:05:47 06/25/20 19 06/25/2019 urina lysis , dipst ick Glucose Negati ve Not Available In-Office Order Internal Use Only DO Not Attach Compendium DO Not Attach Compendium, Do Not Delete/merge, [id number] 06/25/2019 14:05:47 07/02/20 19 07/02/2019 urina lysis , dipst ick Protein Negati ve Not Available In-Office Order Internal Use Only DO Not Attach Compendium DO Not Attach Compendium, Do Not Delete/merge, [id number] 07/02/2019 11:58:27 07/02/20 19 07/02/2019 urina lysis , dipst ick Glucose Negati ve Not Available In-Office Order Internal Use Only DO Not Attach Compendium DO Not Attach Compendium, Do Not Delete/merge, [id number] 07/02/2019 11:58:27 07/09/20 19 07/09/2019 urina lysis , dipst ick Protein Negati ve Not Available In-Office Order Internal Use Only DO Not Attach Compendium DO Not Attach Compendium, Do Not Delete/merge, [id number] 07/09/2019 14:43:26 07/09/20 19 07/09/2019 urina lysis , dipst ick Glucose Negati ve Not Available In-Office Order Internal Use Only DO Not Attach Compendium DO Not Attach Compendium, Do Not Delete/merge, [id number] 07/09/2019 14:43:26 12/04/19 20 12/05/2019 TSH, ultra -sens itive , serum TSH 1.810 uIU/m L 0.450- 4.500 Not Available [facility] ([facility]) [address] [facility], [place], [address], 12/05/2019 09:38:47 12/04/1912/05/2019 FSH (foll icle- stimu latin g hormo ne), serum FSH 5.7 mIU/m L Adult Femal e: Folli cular phase 3.5 - 12.5 Ovula tion phase 4.7 - 21.5 Lutea l phase 1.7 - 7.7 Postm enopa usal 25.8 - 134.8 Not Available [facility] ([facility]) [address] [facility], [place], [address], 12/05/2019 09:38:47 12/04/1912/05/2019 prola ctin, serum prolactin 13.9 NG/mL 4.8-23 .3 Not Available [facility] ([facility]) [address] [facility], [place], [address], 12/05/2019 09:38:48 Result Notes None recorded. Problems Name Problem SNOMED Code Status Onset Date Resolution Date Notes Provider Name and Address Organization Details Recorded Time RhD negative 484615430 Completed Rhogam @ 28 wks. Given 04/17/19 CACHORRO Hernandez, [facility] 0 09:17:29 Steriliza tion requested [id number] Completed IDPA consent signed 05/15/19 CACHORRO Hernandez, [facility] 0 09:17:29 No current problems or disabilit y [id number] Active Maria E [place], [place] - [facility] 9 12:07:02 [id number] Completed 201604/30/2017 CACHORRO Valdes, [facility] 9 11:41:10 [id number] Completed 201807/14/2019 CACHORRO Valdes, [place] [facility] 9 11:41:10 Problem Notes None recorded. Procedures Surgical History Date Name Laterality Status Provider Name and Address Organization Details Recorded Time 01/06/20 Date of Last Pap Smear completed Maria E BRIZUELA - [facility], [facility] 02/04/2019 14:47:01 SALPINGECTOMY, LAPAROSCOPIC (SURG) completed Lacie Andujar LPN [facility] 10/21/2019 11:24:03 Imaging Results None recorded. Procedure Notes None recorded. Medical Equipment None Reported. Allergies Allergen ID Allergen Name Allergen Category Reaction Reaction Severity Criticality Documentation Date Start Date Code Code System Note Provider Name and Address Organization Details Recorded Time 88228 Product containin g penicilli n (product) medicatio n hives Not available Not available 04/16/2017 13225 8001 SNOMED Maria E norwood, [facility] 7 14:44:47 03712 codeine medicatio n hives Not available Not available 04/16/2017 2670 RxNorm Maria E norwood, [facility] 7 14:44:58 Medications Name Sig Start Date Stop Date Status Note LastModified by Organization Details LastModified Time Prescripti on - New 09/29 completed Rx for Rhogam Not Available Not Available Not Available cetirizine 10 mg tablet 12/08 completed Not Available Not Available Not Available metronidaz ole 500 mg tablet Take 1 tablet twice a day by oral route. 08/23 completed Not Available Not Available Not Available ciprofloxa shahnaz 500 mg tablet TAKE 1 TABLET BY MOUTH EVERY 12 HOURS FOR 7 DAYS 09/28 completed Not Available Not Available Not Available sulfametho xazole 800 mg-trimeth oprim 160 mg tablet TAKE 1 TABLET BY MOUTH EVERY 12 HOURS FOR 5 DAYS 09/28 completed Not Available Not Available Not Available Vitamin tablet Take 1 tablet every day by oral route. 05/14 completed Not Available Not Available Not Available doxycyclin e monohydrat e 100 mg capsule 12/04 completed Not Available Not Available Not Available misoprosto l 200 mcg tablet Take 2 tablets by oral route as directed . 05/30 completed Not Available Not Available Not Available ibuprofen 600 mg tablet 12/08 completed Not Available Not Available Not Available Pepcid 20 mg tablet Take 1 tablet twice a day by oral route. 07/30 completed Not Available Not Available Not Available sertraline 50 mg tablet Take 1 tablet every day by oral route. 12/08 completed Not Available Not Available Not Available Vitamin 27 mg iron-0.8 mg tablet Take 1 tablet every day by oral route. 12/04 completed Not Available Not Available Not Available Vitals Date Recorded Body height Body mass index (BMI) Body weight Systolic And Diastolic Provider Name and Address Organization Details Last Updated DateTime 12/04/2019 165.1 cm 34.8 kg/m2 86385.88 g 126/88 mm[Hg] Deborah Hudson [facility] 12/04/2019 09:59:55 Date Recorded Body weight Provider Name an d Address Organization Details Last Updated DateTime 07/09/2019 184767.615309 g Neel Perez [facility] 07/09 15:10:53 Date Recorded Body height Body mass index (BMI) Systolic And Diastolic Provider Name and Address Organization Details Last Updated DateTime 07/09/2019 165.1 cm 37.3 kg/m2 134/84 mm[Hg] Maria E Ham [facility] 07/09/2019 14:40:04 Date Recorded Body height Body mass index (BMI) Body weight Systolic And Diastolic Provider Name and Address Organization Details Last Updated DateTime 07/30/2019 165.1 cm 33.5 kg/m2 64433.14 g 130/80 mm[Hg] Maria E Sheridanford [facility] 07/30/2019 12:06:42 Date Recorded Body height Body mass index (BMI) Body weight Systolic And Diastolic Provider Name and Address Organization Details Last Updated DateTime 09/29/2019 165.1 cm 34.3 kg/m2 62794.39 g 130/70 mm[Hg] Maria E Sheridanford [facility] 09/29/2019 10:01:43 Social History Question Answer Notes LastModified by Organizat ion Details LastModified Time Tobacco Smoking Status Never Smoker Maria E Sheridanford null, [facility] 04/16/2017 14:55:21 If You Are , What Was Your Level Of Alcohol Consumption Prior To ? None Information not available 04/16/2017 Is Blood Transfusion Acceptable In An Emergency? Yes [email or web address] Information not available 04/16/2017 What Is Your Level Of Caffeine Consumption? Moderate Information not available 12/02/2018 Live With Cats/exposure To Cat Litter No [facility] Information not available 04/16/2017 How Much Tobacco Do You Chew? None Information not available 04/16/2017 What Type Of Diet Are You Following? REGULAR Information not available 04/16/2017 Education 12 Information no t available 04/16/2017 Frequent Air Travel No Information not available 04/16/2017 Illicit Drugs Pre- Denies Information not available 04/16/2017 Live Alone Or With Others? With Others Information not available 04/16/2017 Marital Status Informatio n not available 04/16/2017 What Was The Date Of Your Most Recent Tobacco Screening? 12/04/2019 [email or web address] Information not available 12/04/2019 How Many Children Do You Have? 4 Information not available 07/30/2019 Performs Monthly Self-breast Exam? No Information no t available 12/08/2020 Do You Use Protection During Sex? Usually Information not available 12/08/2020 What Is Your Relationship Status? Information not available 07/30/2019 Seat Belts Used Routinely No Information not available 04/16/2017 Are You Sexually Active? Yes Information not available 04/16/2017 Do You Have Smoke And Carbon Monoxide Detectors In Your Home? Yes Information not available 04/16/2017 Are You Passively Exposed To Smoke? Yes Information no t available 12/02/2018 How Much Tobacco Do You Smoke? No [email or web address] Information not available 12/04/2019 Smoking Pre- No Information not available 04/16/2017 General Stress Level High Information not available 12/04/2019 Do You Use Sunscreen Routinely? No Information not available 04/16/2017 Sex: Female Functional Status Question Answer Note LastModified by Organizat ion Details LastModified Time What is your level of alcohol consumption? None Information not available 04/16/2017 Do you or have you ever used smokeless tobacco? Never used smokeless tobacco [email or web address] Information not available 12/04/2019 Are you currently employed? No Information not available 12/02/2018 Do you or have you ever used e-cigarettes or vape? Never used electronic cigarettes [email or web address] Information not available 12/04/2019 What is your exercise level? None [email or web address] Information not available 12/04/2019 Mental Status None recorded. Family History Relationship Description Onset Age of this Age Resolved Age Notes LastModified by Organization Details LastModified Time Paternal Grandfather Hypertensive disorder [place] Not available 2016 14:53:48 Paternal Grandfather Malignant neoplasm of thyroid gland [place] Not available 2016 14:54:49 Paternal Grandfather Malignant neoplasm of kidney [place] Not available 2016 14:55:02 Paternal Grandmother Hypertensive disorder [place] Not available 2016 14:53:48 Paternal Grandmother Malignant neoplasm of breast [place] Not available 2016 14:54:11 Paternal Grandmother Diabetes mellitus [place] Not available 2018 10:15:48 Maternal Grandmother Hypertensive disorder [place] Not available 2016 14:53:48 Maternal Grandmother Malignant neoplasm of breast [place] Not available 2016 14:54:11 Mother Malignant neoplasm of ovary [email or web address] Not available 2018 10:15:34 Medical History Condition Response Other Y High Blood Pressure N Breast Cancer N Thyroid Problems N Kidney or Bladder Problems N GI Problems N Depression Y Blood Clots N Lung Disease N Acne Y Eating Disorder N Breast Problem N Anemia N Anesthesia Complications N Headaches/Migraines Y Anxiety Disorder Y Diabetes N Ovarian Cancer N Muscle, Joint, or Bone Problems N Blood Transfusions N Seizures/Epilepsy N Polyps N Infertility N Acid Reflux (GERD) Y Cancer N Abuse/Domestic Violence N Asthma N Endometriosis N High Cholesterol N Hepatitis N Liver Disease N Heart Disease N Pre-Eclampsia N Osteoporosis N Gynecological History Statement/Question Response Abnormal Pap N Flow Light On BCP's at Conception? N STIs/STDs Y HPV Vaccine Y Age at Menarche 15 Current Control Method Tubal Ligat ion Age at First Child 21 Sexually Active? Y Menses Monthly Y Date of Last Pap Smear 01/06/2019 Sexual Problems? N LMP Approximate Obstetrics History GPAL:G 6 P 4 0 2 4 Type Value Multiple Births 0 Full Term 4 Induced 0 Spontaneous 2 Premature 0 Living 4 Ectopics 0 Total 6 Immunizations Vaccine Type Date Status Note Provider Nam e and Address Organization Details Recorded Time Rho(D)-IG 04/17/2019 corrina [place], [place] - [facility] 05/01/2019 11:18:57 Tdap 04/16/2019 completed Not Available [facility] 12[facility]13/2019 02:39:49 Past Encounters Encounter ID Performer Location Encounter Start Date Encounter Closed Date Diagnosis/Indication Diagnosis SNOMED-CT Code Diagnosis ICD10 Code Diagnosis IMO Codes Diagnosis Note [id number] MD El Butts (MANAGER [employer]UX) [address] [place] [address] 04/16/2017 14:28:15 04/20/2017 08:01:09 Routine care 923171641 Z34.81 See ACOG form Missed period 45717122 N 92.5 UPT positive, dwp. Dysuria 52847064 R30.0 UA negative, dwp. [id number] MD El Butts (MANAGER LINUX) [address] [place] [address] 04/26/2017 11:00:32 04/26/2017 14:18:58 Threatened miscarriage 81037241 O20.0 Likely SAB d/w pt. Will check beta hCG quant. If decreased, SAB confirmed. If increases, will repeat US. Precaution s for ectopic , acute blood loss anemia, and sepsis d/w pt. Pt. expressed understand ing. RTO Mon for results and POC. [id number] MD El Butts (MANA[facility] [employer]) [address] [place] [address] 04/30/2017 12:05:16 05/04/2017 11:57:49 Incomplete miscarriage 224885789 O03.4 [place] [address] to 4001 confirming miscarriag e, dwp. Options of expectant management , cytotec medication , and D&C d/w pt. Pt. wants to use the cytotec medication . Rx sent to pharmacy. Pt. instructed to take 2 pills by mouth on Sun. (her day off work) Expectatio n of heavy bleeding and cramping discussed. If bleeding does not stop by Sat, pt. to take another 2 pills. If bleeding does not stop by , return to office. Pt. also instructed to have serial beta hCG quants done on Fridays until < 5. [id number] MD El Butts (MANAGER [employer]UX) [address] [place] [address] 05/14/2017 10:33:50 05/16/2017 16:56:55 Incomplete miscarriage 816438192 O03.4 Pt. took the medication as prescribed but did not get her blood drawn because she did not have gas to get to the office.. She is still bleeding and it's getting heavier. Recommenda tion made for suction D&C. Pt. agreeable. Benefits, risks, and alternativ es to suction D&C discussed with pt. Pt. expressed understand ing. All pt. questions answered. Suction D&C scheduled for 05/16/17. Candace andrade discussed. Beta hCG quant today. Need to follow to <5 discussed. [id number] [facility] [address] [place] [address] 05/30/2017 11:53:07 06/01/2017 10:09:37 Threatened miscarriage 97716484 O20.0 Will check US for remaining POCs. RTO 3 days p US for results and POC. Precaution s discussed. Vaginal discharge 242566 006 N89.8 [id number] Neel Perez MD [facility] (MANAGER LINUX) [address] [place] [address] 06/20/2017 11:56:25 06/21/2017 14:42:44 Dysuria 46965010 R30.0 UA negative, dwp. Bacterial vaginosis 4197 59550 N76.0 Diagnosis d/w pt. Rx sent to pharmacy. Candace andrade discussed. Complete miscarriage 156 926574 O03.9 Pt. has stopped bleeding and had a normal period. Last beta hCG quant was 12. Pt. never returned for another one. Need to follow quants down to zero discussed. Beta hCG quant ordered. Sterilizat ion requested 664503178 Z30.2 IDKY consent signed. Laparoscop y vs Essure discussed. Pt. wants the laparoscop y. Will schedule. [id number] [facility] [address] [place] [address] 08/23/2017 09:06:49 08/24/2017 17:01:41 Sterilization requested 517153190 Z30.2 Benefits, risks, and alternativ es to laparoscop y and bilateral tubal ligation with Filshie clips d/w pt. Pt. expressed understand ing. All pt. questions answered. IDPA consent signed 06/20/17. Pt. scheduled 09/06/17. Pre- and post-OP instructio ns and expectatio ns discussed. [id number] MD El Butts (MANAGER [employer]) [address] [place] [address] 12/02/2018 10:01:08 12/02/2018 15:44:24 Missed period 03947098 N92.5 UPT positive, dwp. Routine an tenatal care 221186486 Z34.01 See ACOG form [id number] MD El Butts (MANAGER [employer]) [address] [place] [address] 01/06/2019 09:16:52 01/07/2019 12:22:37 Routine care 323800824 Z34.82 See ACOG form [id number] MD El Butts (MANAGER [employer]) [address] [place] [address] 02/04/2019 14:42:35 02/05/2019 11:19:38 Routine care 791064796 Z34.82 See ACOG form [id number] MD El Butts (MANAGER [employer]) [address] [place] [address] 03/04/2019 09:16:16 03/05/2019 11:48:25 Routine care 668468688 Z34.82 See ACOG form Gastroesop hageal reflux disease 406896837 K21.9 Urine gluc ose test = +++ 654907072 R81 [id number] MD El Butts (MANAGER [employer]) [address] [place] [address] 04/01/2019 10:29:04 04/02/2019 11:31:39 Routine care 337898528 Z34.82 See ACOG form [id number] MD El Butts (MANAGER [employer]UX) [address] [place] [address] 04/16/2019 08:44:57 04/17/2019 11:35:01 Routine care 466635781 Z34.83 See ACOG form RhD negative 300873289 Z 01.83 Rx type &Screen and Rhogam given. Instructio ns discussed. [id number] MD El Butts (MANAGER [employer]) [address] [place] [address] 05/01/2019 10:31:07 05/05/2019 13:06:23 Routine care 453738759 Z34.03 See ACOG form [id number] MD Anushka Buttshalto (MANAGER LINUX) [address] [place] [address] 05/15/2019 10:09:46 05/16/2019 11:22:09 Routine care 709268491 Z34.83 See ACOG form Glycosuria 40745817 R81 [id number] MD Anushka Buttshalto (MANAGER LINUX) [address] [place] [address] 05/28/2019 15:27:22 05/30/2019 09:07:21 Routine care 394804092 Z34.83 See ACOG form [id number] MD El Butts (MANAGER [employer]UX) [address] [place] [address] 06/11/2019 10:42:26 06/12/2019 10:09:25 Routine care 085062867 Z34.83 See ACOG form [id number] MD Anushka Buttshalto (MANAGER LINUX) [address] [place] [address] 06/18/2019 11:53:58 06/19/2019 11:37:29 Routine care 454340429 Z34.83 See ACOG form [id number] MD El Butts (MANAGER LINUX) [address] [place] [address] 06/25/2019 13:42:17 06/25/2019 14:17:28 Routine care 019580479 Z34.03 See ACOG form [id number] MD El Butts (MANAGER LINUX) [address] [place] [address] 07/02/2019 11:43:10 07/03/2019 12:33:40 Routine care 805459958 Z34.03 See ACOG form [id number] [facility] [address] [place] [address] 07/09/2019 14:29:38 07/10/2019 10:41:25 Routine care 486642149 Z34.03 See ACOG form [id number] [facility] [address] [place] [address] 07/30/2019 11:17:49 08/08/2019 11:04:19 care 297077842 Z39.2 Doing well. EPDS = 3. Sterilizat ion requested 235841946 Z30.2 Benefits, risks, and alternativ es to laparoscop ic tubal ligation with Filshie Clips and laparoscop ic bilateral salpingect eddie d/w pt. Pt would prefer salpingect eddie if insurance will pay for it. If not, she will settle for tubal ligation with Filshie Clips. Pt. expressed understand ing. All pt. questions answered. Will schedule. [id number] Neel Perez MD [facility] (MANAGER LINUX) [address] [place] [address] 09/29/2019 09:53:32 09/30/2019 11:05:27 Sterilization requested 223076299 Z30.2 Benefits, risks, and alternativ es to laparoscop ic bilateral salpingect eddie d/w pt. Pt. expressed understand ing. All pt. questions answered. Pt. scheduled on 10/09/19. [id number] Neel Perez MD [facility] (MA[employer]) [address] [place] [address] 12/04/2019 09:46:08 12/17/2019 08:40:37 Irregular periods 48900868 N92.6 Will check hormones. Positive s creening for depression on PHQ-9 (Patient Health Questionnaire 9) 5761435575 10661 Z13.89 Option of treating with medication d/w pt. Pt. agreeable. Counseling offered, accepted, referral generated. RTO one month for follow-up. [id number] Neel Perez MD [facility] (MANAGER [employer]) [address] [place] [address] 12/08/2020 08:05:46 12/09/2020 18:22:37 Galactorrhea due to non-obstetric cause 650569585 N64.3 Conservati ve measures discussed. Pt. advised to bind breasts with an melia bandage and use ice for pain. Pt. also cautioned not to stimulate the breast or nipple as that will cause more . Will check prolactin and TSH. Health Concerns Section Related Observation LastModified by Organization Detai ls LastModified Time None Recorded Concern Status LastModified by Organization Details LastModified Time None Recorded Advance Directives Directive None Recorded Payers Insurance Date Sequence Insurance Name Policy Number Policy Felipe Covered Member ID Felipe Member ID Guarantor Name 08/24/2025 1 [facility] PRIOR TO 05/26/2021 (MEDICAID REPLACEMENT - HMO) Shannongabriela Dawkins [id number] Shannongabriela Dawkins 10/01/2025 1 [facility] ON OR AFTER 10/26/2020 (MEDICAID REPLACEMENT - HMO) Shannon Fermín [id number] Shannon Fermín 08/24/2025 1 [facility] (MEDICAID HMO) [id number] Shannon Fermín [id number] Shannon Fermín 08/24/2025 1 [facility] PRIOR TO 05/26/2021 (MEDICAID REPLACEMENT - HMO) Shannongabriela Dawkins [id number] Shannon Dawkins Notes Date Note Type Note Provider Name and Address Organization Details Recorded Time 9 text/html VisitReported by PatientHPIFor onset/timing, patient reportsdate of delivery: (07/12/19). For quality, patient reportsnsvd. For context, patient reportscomplications of : none,complications of labor: none, complications: none,feeding choice: breast and bottle, andgood support from partner/family. For associated symptoms, patient reportsno abnormal bleeding,no pelvic pain,laceration well healed,no constipation,no fecal incontinence,no dysuria,no urinary incontinence,no fever,no problems, andno mastitis. eNel Perez [facility], [place] - SI 08/07/2019 16:49:32 9 text/html Pt. presents for her pre-OP evaluation for laparoscopy with bilateral salpingectomy. She is sure she does not want any more children, ever. Neel norwood, [facility] - SI 09/29/2019 10:36:34 0 text/html ROS as noted in the HPI Pt presents with c/o irregular periods. Neel norwood, [facility] 12/16/2019 17:22:27 1 text/html ROS as noted in the HPI Telephone visit due to COVID-19 pandemic. Pt. with c/o galactorrhea. She quit breast feeding 11 mo. ago but she still has milk coming from her right breast. Upon questioning, she states it fills up and hurts, so she expresses the milk to decrease the pain. Of note, upon questioning, she also has c/o headaches. However, she denies any changes in her vision. Neel norwood, [facility] SI 12/08/2020 14:11:20 OBGyn Episode Ob Episode Information Episode Created Date Number of Fetuses Patient Bloodtype Patient rh Status Prepregnancy Weight lbs Domestic Partner Domestic Partner Phone Father Name Pneumatic Systems Operator Status 12/02/19 19 1 A Negative radha dawkins CLOSED Fetus Data First Name Last Name Admitted to NICU Weight (g) Sex Living Outcome Pediatric Complications Fetus ID Race Codes Race Delivery Type false 4113.53 17160 M true Full Term [id number] 2106-3 White Vaginal Problems Problem Notes A neg/Ab neg/RI/RPR NR/HBsAg Neg/ HIV neg /GC-Chlam neg-neg. /1 hour 132 / TdaP given 04/16/19 Problem Name Start Date End Date Resolution Snomed Code Not e Sterilization requested [id number] IDPA consent signed 05/15/19 RhD negative [id number] Rhogam @ 28 wks. Given 04/17/19 Omid Calculation Initial Omid Date Initial Exam Date Initial Exam Provider Initial Ultrasound Date Last Menstrual Period Date Ultra Sound Weeks Gestation 07/07/2019 12/02/2018 [email or web address] 11/21/2018 09/04/2018 7 Eighteen To Twenty Week Omid Update Ultra Sound Date Fundal Height At Umbil Quickening Date Ultra Sound Latest Weeks Gestation Final Omid Confirmed By Final Omid Confirmed Date Final Omid Date Ultra Sound Latest Days Gestation 02/13/20 19 0 [email or web address] 01/06/2019 07/07/20 19 0 Pre-aidan Flowsheet Flowsheet Date 12/02/2018 Crane Score Blood Edema Fundus Height Fundus Units Glucose Ketones Leukocytes Nitrite Labor Signs Protein Cervic Dilation Cervic Effacement Cervic Station Type Weight in lbs Pre/Post Dialysis Refused Weight 218.377931830201 BP Diastolic BP Location Tested BP Systolic BP Type 74 130 sitting Fetus Heart Rate Present Fetus Movement Comments folder given. Pt. had US at [facility] with EDC of 07/07/19. DAVID obtained. labs ordered. Pt. taking PNVs. Rx sent to pharmacy. RTO 4 weeks. Flowsheet Date 01/06/2019 Crane Score Blood Edema Fundus Height Fundus Units Glucose Ketones Leukocytes Nitrite Labor Signs Protein Cervic Dilation Cervic Effacement Cervic Station none trace Type Weight in lbs Pre/Post Dialysis Refused Weight 218.026818801732 BP Diastolic BP Location Tested BP Systolic BP Type 82 138 sitting Fetus Heart Rate Present A 150 Present Fetus Movement Comments Records from [facility] not available. Requested again. Pt. states she was told due date of 07/07/19 which would make her 14 weeks today. PE, pap, GC/Chlam cx done. RTO 4 weeks. Flowsheet Date 02/04/2019 Crane Score Blood Edema Fundus Height Fundus Units Glucose Ketones Leukocytes Nitrite Labor Signs Protein Cervic Dilation Cervic Effacement Cervic Station Type Weight in lbs Pre/Post Dialysis Refused Weight 221.179528463719 BP Diastolic BP Location Tested BP Systolic BP Type 68 130 sitting Fetus Heart Rate Present Fetus Movement Comments Flowsheet Date 03/04/2019 Crane Score Blood Edema Fundus Height Fundus Units Glucose Ketones Leukocytes Nitrite Labor Signs Protein Cervic Dilation Cervic Effacement Cervic Station 1+ neg Type Weight in lbs Pre/Post Dialysis Refused Weight 222.526294871833 BP Diastolic BP Location Tested BP Systolic BP Type 68 124 sitting Fetus Heart Rate Present A 140 Present Fetus Movement A Yes Comments Pt. spilling glucose in her urine. Will check HbA1c, dwp. Nutrition discussed. Anatomy US wnl. RTO 4 weeks. Flowsheet Date 04/01/2019 Crane Score Blood Edema Fundus Height Fundus Units Glucose Ketones Leukocytes Nitrite Labor Signs Protein Cervic Dilation Cervic Effacement Cervic Station 28 cm none neg Type Weight in lbs Pre/Post Dialysis Refused Weight 223.395535989116 BP Diastolic BP Location Tested BP Systolic BP Type 80 136 sitting Fetus Heart Rate Present A 155 Present Fetus Movement A Yes Comments PT labor prec. discussed. RT O 2 weeks. Third trimester labs, Rhogam, and TdaP next visit. Flowsheet Date 04/16/2019 Crane Score Blood Edema Fundus Height Fundus Units Glucose Ketones Leukocytes Nitrite Labor Signs Protein Cervic Dilation Cervic Effacement Cervic Station 28 cm none neg Type Weight in lbs Pre/Post Dialysis Refused Weight 223.047372973819 BP Diastolic BP Location Tested BP Systolic BP Type 70 126 sitting Fetus Heart Rate Present A 140 Present Fetus Movement A Yes Comments Third trimester labs today. TdaP discussed, given. Rx Rhogam given. Instructions discussed. PT labor prec./kick counts discussed. RTO 2 weeks. Flowsheet Date 05/01/2019 Crane Score Blood Edema Fundus Height Fundus Units Glucose Ketones Leukocytes Nitrite Labor Signs Protein Cervic Dilation Cervic Effacement Cervic Station 30 cm 1+ trace Type Weight in lbs Pre/Post Dialysis Refused Weight 222.896155707918 BP Diastolic BP Location Tested BP Systolic BP Type 82 160 sitting Fetus Heart Rate Present A 160 Present Fetus Movement A Yes Comments BP elevated. Pt with c/o sev ere HAs and seeing spots. Pt. to L&D for PIH w/u. S/Sx pre-eclampsia discussed. Pt instructed to decrease sugar intake as well. PT labor prec/kick counts discussed. RTO 2 weeks. Flowsheet Date 05/15/2019 Crane Score Blood Edema Fundus Height Fundus Units Glucose Ketones Leukocytes Nitrite Labor Signs Protein Cervic Dilation Cervic Effacement Cervic Station 33 cm 2+ trace Type Weight in lbs Pre/Post Dialysis Refused Weight 222.518532774607 BP Diastolic BP Location Tested BP Systolic BP Type 70 118 sitting Fetus Heart Rate Present A 140 Present Fetus Movement A Yes Comments Pt. still spilling glucose i n her urine. Repeat one hour GCT ordered. Instructions discussed. Pt to get it done tomorrow. PT labor prec/kick counts discussed. RTO 2 weeks. IDPA TL consent. Flowsheet Date 05/28/2019 Crane Score Blood Edema Fundus Height Fundus Units Glucose Ketones Leukocytes Nitrite Labor Signs Protein Cervic Dilation Cervic Effacement Cervic Station 34 cm 2+ trace Type Weight in lbs Pre/Post Dialysis Refused Weight 222.92587423568 BP Diastolic BP Location Tested BP Systolic BP Type 84 130 sitting Fetus Heart Rate Present A 140 Present Fetus Movement A Yes Comments One hour GCT = 125, dwp. PT labor prec/kick counts discussed. RTO two weeks. Flowsheet Date 06/11/2019 Crane Score Blood Edema Fundus Height Fundus Units Glucose Ketones Leukocytes Nitrite Labor Signs Protein Cervic Dilation Cervic Effacement Cervic Station 37 cm 2+ neg 1cm 20% -4 Type Weight in lbs Pre/Post Dialysis Refused Weight 222.126724752241 BP Diastolic BP Location Tested BP Systolic BP Type 90 132 sitting Fetus Heart Rate Present A 180 Present Fetus Movement A Yes Comments GBS done today. Pt still spi lling glucose in her urine. Repeat one hour GCT 04/27/19 was normal at 125. Need to decrease sugar intake again d/w pt. Risks of excess sugar for baby and pt. also discussed again. Pt also went to L&D for LOF and was ruled out for rupture. However, she has continues to have leaking and she says it smells bad. Also, FHTs 170s-190s in office over 2 min. with the doppler. Pt. to L&D for NST and LOF. Labor prec/kick counts discussed. RTO one week if everything OK at L&D, dwp. Flowsheet Date 06/18/2019 Crane Score Blood Edema Fundus Height Fundus Units Glucose Ketones Leukocytes Nitrite Labor Signs Protein Cervic Dilation Cervic Effacement Cervic Station 37 cm 2+ neg 1cm 20% -4 Type Weight in lbs Pre/Post Dialysis Refused Weight 224.300303522428 BP Diastolic BP Location Tested BP Systolic BP Type 82 110 sitting Fetus Heart Rate Present A 135 Present Fetus Movement A Yes Comments GBS negative, dwp. Pt. ruled out for rupture again last week. FHTs were reassuring. Pt denies LOF, VB today. +FM. Labor prec/kick counts discussed. RTO one week. Flowsheet Date 06/25/2019 Crane Score Blood Edema Fundus Height Fundus Units Glucose Ketones Leukocytes Nitrite Labor Signs Protein Cervic Dilation Cervic Effacement Cervic Station 38 cm none neg Type Weight in lbs Pre/Post Dialysis Refused Weight 224.845082136858 BP Diastolic BP Location Tested BP Systolic BP Type 78 138 sitting Fetus Heart Rate Present A 145 Present Fetus Movement A Yes Comments Pt. denies LOF, BV, +FM. Lab or prec/kick counts discussed. RTO one week. Flowsheet Date 07/02/2019 Crane Score Blood Edema Fundus Height Fundus Units Glucose Ketones Leukocytes Nitrite Labor Signs Protein Cervic Dilation Cervic Effacement Cervic Station 40 cm none neg 2cm 40% -4 Type Weight in lbs Pre/Post Dialysis Refused Weight 223.757673135482 BP Diastolic BP Location Tested BP Systolic BP Type 80 130 sitting Fetus Heart Rate Present A 145 Present Fetus Movement A Yes Comments Labor prec/kick counts discu ssed. RTO one week. Flowsheet Date 07/09/2019 Crane Score Blood Edema Fundus Height Fundus Units Glucose Ketones Leukocytes Nitrite Labor Signs Protein Cervic Dilation Cervic Effacement Cervic Station none neg 2cm 50% -4 Type Weight in lbs Pre/Post Dialysis Refused Weight 224.691071832576 BP Diastolic BP Location Tested BP Systolic BP Type 84 134 sitting Fetus Heart Rate Present A 145 Present Fetus Movement A Yes Comments Labor prec/kick counts discu ssed. IOL Fri. 8 PM, dwp. Flowsheet Date 12/04/2019 Crane Score Blood Edema Fundus Height Fundus Units Glucose Ketones Leukocytes Nitrite Labor Signs Protein Cervic Dilation Cervic Effacement Cervic Station Type Weight in lbs Pre/Post Dialysis Refused Weight 209.261213120996 BP Diastolic BP Location Tested BP Systolic BP Type 88 L arm 126 sitting Fetus Heart Rate Present Fetus Movement Comments Menstrual History Last Menstrual Date Menses Monthly On Bcp Conception Prior Menses Frequency Hcg Plus Date Menarche Onset Age 1009/04/2018 true 7 9 13 Genetic Screening And Infection History Question Response Note Patient's Age Will Be 35 Yea rs Or Older At Estimated Date of Delivery false Thalassemia (Amharic, East Timorese, Mediterranean, Or Background): MCV < 80 false Neural Tube Defect (Meningom yelocele, Spina Bifida, Or Anencephaly) false Congenital Heart Defect false Down Syndrome false Ino-Sachs (eg, Mu-Ism, Cajun , American-Mauritanian) false Don Disease false Sickle Cell Disease Or Trait () false Hemophilia Or Other Blood Disorders false Muscular Dystrophy false Cystic Fibrosis false Ruth's Chorea false Mental Retardation/Autism true Older son diagnosed with autism If Yes, Was Person Tested For Fragile X? false Other Inherited Genetic Or C hromosomal Disorder false Maternal Metabolic Disorder (eg, Type 1 Diabetes, PKU) false Patient Or Baby's Father Had A Child With Defects Not Listed Above false Recurrent Loss, Or A Stillbirth false Medications (including Suppl ements, Vitamins, Herbs, OTC Drugs), Illicit/Recreational Drugs, Alcohol true vitamins If Yes, Agent(s) And Strength/Dosage false Any Other Genetic History false Live With Someone With TB Or Exposed To TB false Patient Or Partner Has Histo ry Of Genital Herpes false Rash Or Viral Illness Since Last Menstrual Period false History Of STD, Gonorrhea, C hlamydia, HPV, Syphilis true Hx to ct, ng and tv Other Infection History false History of HIV false History of Hepatitis false Prior GBS-infected child false Delivery Information Delivery Date Delivery Type Labor Anesthesia Weeks Gestation Incision Type Labor Labor Length Hrs Delivered By Post Complications Tubal Sterilization Discharge Date Comments 9 Induce d [facility].[address] Neel Perez None false 07/13/2019 Discharge Information Feeding Method Contraceptive Method Maternal HG B and HCT Levels Breast 10.8/33.5 Ob Episode Information Episode Created Date Number of Fetuses Patient Bloodtype Patient rh Status Prepregnancy Weight lbs Domestic Partner Domestic Partner Phone Father Name Pneumatic Systems Operator Status 04/16/20 17 1 A Negative CLOSED Fetus Data First Name Last Name Admitted to NICU Weight (g) Sex Living Outcome Pediatric Complications Fetus ID Race Codes Race Delivery Type , Spontane ous [id number] 2106-3 White Omid Calculation Initial Omid Date Initial Exam Date Initial Exam Provider Initial Ultrasound Date Last Menstrual Period Date Ultra Sound Weeks Gestation 10/31/2017 04/16/2017 01/24/2017 0 Eighteen To Twenty Week Omid Update Ultra Sound Date Fundal Height At Umbil Quickening Date Ultra Sound Latest Weeks Gestation Final Omid Confirmed By Final Omid Confirmed Date Final Omid Date Ultra Sound Latest Days Gestation 0 10/31/20 17 0 Pre- Flowsheet Flowsheet Date 04/16/2017 Crane Score Blood Edema Fundus Height Fundus Units Glucose Ketones Leukocytes Nitrite Labor Signs Protein Cervic Dilation Cervic Effacement Cervic Station Type Weight in lbs Pre/Post Dialysis Refused 192.644148622341 BP Diastolic BP Location Tested BP Systolic BP Type 74 120 sitting Fetus Heart Rate Present Fetus Movement Comments labs ordered. Rx PN Vs sent. Nutrition and hydration discussed. Dating US ordered. RTO 4 weeks for NOB visit. Flowsheet Date 04/26/2017 Crane Score Blood Edema Fundus Height Fundus Units Glucose Ketones Leukocytes Nitrite Labor Signs Protein Cervic Dilation Cervic Effacement Cervic Station Type Weight in lbs Pre/Post Dialysis Refused 189.16280252365 BP Diastolic BP Location Tested BP Systolic BP Type 76 126 sitting Fetus Heart Rate Present Fetus Movement Comments Flowsheet Date 04/30/2017 Crane Score Blood Edema Fundus Height Fundus Units Glucose Ketones Leukocytes Nitrite Labor Signs Protein Cervic Dilation Cervic Effacement Cervic Station Type Weight in lbs Pre/Post Dialysis Refused 191.129421624313 BP Diastolic BP Location Tested BP Systolic BP Type 72 100 sitting Fetus Heart Rate Present Fetus Movement Comments Menstrual History Last Menstrual Date Menses Monthly On Bcp Conception Prior Menses Frequency Hcg Plus Date Menarche Onset Age 0301/24/2017 false 7 13 Delivery Information Delivery Date Delivery Type Labor Anesthesia Weeks Gestation Incision Type Labor Labor Length Hrs Delivered By Post Complications Tubal Sterilization Discharge Date Comments 7 12.6 Pt had Spontaneo us at 12wk/6day s Discharge Information Feeding Method Contraceptive Method Maternal HG B and HCT Levels Ob Episode Information Episode Created Date Number of Fetuses Patient Bloodtype Patient rh Status Prepregnancy Weight lbs Domestic Partner Domestic Partner Phone Father Name Pneumatic Systems Operator Status 04/16/20 17 1 CLOSED Fetus Data First Name Last Name Admitted to NICU Weight (g) Sex Living Outcome Pediatric Complications Fetus ID Race Codes Race Delivery Type 3401.94 M Full Term [id number] Vaginal Omid Calculation Initial Omid Date Initial Exam Date Initial Exam Provider Initial Ultrasound Date Last Menstrual Period Date Ultra Sound Weeks Gestation 0 Eighteen To Twenty Week Omid Update Ultra Sound Date Fundal Height At Umbil Quickening Date Ultra Sound Latest Weeks Gestation Final Omid Confirmed By Final Omid Confirmed Date Final Omid Date Ultra Sound Latest Days Gestation 0 0 Menstrual History Last Menstrual Date Menses Monthly On Bcp Conception Prior Menses Frequency Hcg Plus Date Menarche Onset Age Delivery Information Delivery Date Delivery Type Labor Anesthesia Weeks Gestation Incision Type Labor Labor Length Hrs Delivered By Post Complications Tubal Sterilization Discharge Date Comments 1 Discharge Information Feeding Method Contraceptive Method Maternal HG B and HCT Levels Ob Episode Information Episode Created Date Number of Fetuses Patient Bloodtype Patient rh Status Prepregnancy Weight lbs Domestic Partner Domestic Partner Phone Father Name Pneumatic Systems Operator Status 04/16/20 17 1 CLOSED Fetus Data First Name Last Name Admitted to NICU Weight (g) Sex Living Outcome Pediatric Complications Fetus ID Race Codes Race Delivery Type Demise [id number] Omid Calculation Initial Omid Date Initial Exam Date Initial Exam Provider Initial Ultrasound Date Last Menstrual Period Date Ultra Sound Weeks Gestation 0 Eighteen To Twenty Week Moid Update Ultra Sound Date Fundal Height At Umbil Quickening Date Ultra Sound Latest Weeks Gestation Final Omid Confirmed By Final Omid Confirmed Date Final Omid Date Ultra Sound Latest Days Gestation 0 0 Menstrual History Last Menstrual Date Menses Monthly On Bcp Conception Prior Menses Frequency Hcg Plus Date Menarche Onset Age Delivery Information Delivery Date Delivery Type Labor Anesthesia Weeks Gestation Incision Type Labor Labor Length Hrs Delivered By Post Complications Tubal Sterilization Discharge Date Comments 4 Discharge Information Feeding Method Contraceptive Method Maternal HG B and HCT Levels Ob Episode Information Episode Created Date Number of Fetuses Patient Bloodtype Patient rh Status Prepregnancy Weight lbs Domestic Partner Domestic Partner Phone Father Name Pneumatic Systems Operator Status 04/16/20 17 1 CLOSED Fetus Data First Name Last Name Admitted to NICU Weight (g) Sex Living Outcome Pediatric Complications Fetus ID Race Codes Race Delivery Type 3628.73 6 F Full Term [id number] Vaginal Omid Calculation Initial Omid Date Initial Exam Date Initial Exam Provider Initial Ultrasound Date Last Menstrual Period Date Ultra Sound Weeks Gestation 0 Eighteen To Twenty Week Omid Update Ultra Sound Date Fundal Height At Umbil Quickening Date Ultra Sound Latest Weeks Gestation Final Omid Confirmed By Final Omid Confirmed Date Final Omid Date Ultra Sound Latest Days Gestation 0 0 Menstrual History Last Menstrual Date Menses Monthly On Bcp Conception Prior Menses Frequency Hcg Plus Date Menarche Onset Age Delivery Information Delivery Date Delivery Type Labor Anesthesia Weeks Gestation Incision Type Labor Labor Length Hrs Delivered By Post Complications Tubal Sterilization Discharge Date Comments 3 Discharge Information Feeding Method Contraceptive Method Maternal HG B and HCT Levels Ob Episode Information Episode Created Date Number of Fetuses Patient Bloodtype Patient rh Status Prepregnancy Weight lbs Domestic Partner Domestic Partner Phone Father Name Pneumatic Systems Operator Status 04/16/20 17 1 CLOSED Fetus Data First Name Last Name Admitted to NICU Weight (g) Sex Living Outcome Pediatric Complications Fetus ID Race Codes Race Delivery Type 3826.95 5704 M Full Term [id number] Vaginal Omid Calculation Initial Omid Date Initial Exam Date Initial Exam Provider Initial Ultrasound Date Last Menstrual Period Date Ultra Sound Weeks Gestation 0 Eighteen To Twenty Week Omid Update Ultra Sound Date Fundal Height At Umbil Quickening Date Ultra Sound Latest Weeks Gestation Final Omid Confirmed By Final Omid Confirmed Date Final Omid Date Ultra Sound Latest Days Gestation 0 0 Menstrual History Last Menstrual Date Menses Monthly On Bcp Conception Prior Menses Frequency Hcg Plus Date Menarche Onset Age Delivery Information Delivery Date Delivery Type Labor Anesthesia Weeks Gestation Incision Type Labor Labor Length Hrs Delivered By Post Complications Tubal Sterilization Discharge Date Comments 6 Discharge Information Feeding Method Contraceptive Method Maternal HG B and HCT Levels Ob Episode Information Episode Created Date Number of Fetuses Patient Bloodtype Patient rh Status Prepregnancy Weight lbs Domestic Partner Domestic Partner Phone Father Name Pneumatic Systems Operator Status 04/26/20 17 1 DELETED Omid Calculation Initial Omid Date Initial Exam Date Initial Exam Provider Initial Ultrasound Date Last Menstrual Period Date Ultra Sound Weeks Gestation 0 Eighteen To Twenty Week Omid Update Ultra Sound Date Fundal Height At Umbil Quickening Date Ultra Sound Latest Weeks Gestation Final Omid Confirmed By Final Omid Confirmed Date Final Omid Date Ultra Sound Latest Days Gestation 0 0 Menstrual History Last Menstrual Date Menses Monthly On Bcp Conception Prior Menses Frequency Hcg Plus Date Menarche Onset Age Delivery Information Delivery Date Delivery Type Labor Anesthesia Weeks Gestation Incision Type Labor Labor Length Hrs Delivered By Post Complications Tubal Sterilization Discharge Date Comments 7 Discharge Information Feeding Method Contraceptive Method Maternal HG B and HCT Levels
[2025-11-25 16:13] LABS: EDCOVIDSCREEN Negative (Negative); EDINFLUASCREEN Negative (Negative); EDINFLUBSCREEN Negative (Negative); EDSTREPNEGPOS1 Negative (Negative)
--- NOTE | 2025-11-25 16:17 | ED.URI ---
HPI - URI/Sore Throat General Chief Complaint: Upper Respiratory Infection Stated Complaint: throat/nose/head congestion Time Seen by Provider: 11/25/25 15:53 Source: patient and RN notes reviewed Mode of arrival: ambulatory Limitations: no limitations History of Present Illness HPI Narrative: 35-year-old female patient presents today complaining of sore throat, bilateral ear pain, frontal headache, and rhinorrhea. Symptoms began this morning. Denies cough, shortness of breath, difficulty swallowing. Currently rates her pain 5/10 and has tried no OTC treatment prior to arrival. Son was diagnosed with influenza B today. Related Data Home Medications ?Medication ?Instructions ?Recorded ?Confirmed ?Last Taken ?Type No Home Medications 11/25/25 11/25/25 Unknown History Allergies Allergy/AdvReac Type Severity Reaction Status Date / Time azithromycin (From Zithromax) Allergy Intermediate Hives Verified 11/25/25 15:58 Penicillins Allergy Intermediate Hives Verified 11/25/25 15:58 amoxicillin Allergy Mild Hives Verified 11/25/25 15:58 meperidine (From Demerol) Allergy Unknown Unknown Verified 11/25/25 15:58 codeine AdvReac Intermediate Nausea and Verified 11/25/25 15:58 Vomiting PMFSH Past Medical History Medical History Urinary tract infection Strep pharyngitis Social History Social History Smoking status: Never smoker Alcohol intake: current Alcohol use details: rare social Substance use type: does not use Living arrangements: with family Gender identity (if verbalized by the patient): Female Comments At time of signature, I have reviewed and agree with nursing past medical, surgical, social and family history unless otherwise noted. Please see nursing chart for further information. There is no relevant family history pertinent to the presenting complaint Exam Narrative: GENERAL: Mildly ill-appearing, well-nourished, and in no acute distress. HEAD: Normocephalic, atraumatic. EYES: EOMI. No redness or drainage. Conjunctivae normal. ENT: Mucous membranes pink and moist. Nares clear. No rhinorrhea. TMs normal bilaterally. Throat normal. Uvula midline. NECK: Normal AROM. Supple. No lymphadenopathy. CHEST: No respiratory distress. Clear to auscultation. HEART: Regular rate and rhythm. No murmur appreciated. EXTREMITIES: Normal range of motion. No edema. SKIN: Warm, dry, no rash. Capillary refill normal. Normal skin turgor. NEURO: No focal deficits. Alert and oriented x3. Gait steady. PSYCH: Normal affect. No signs of depression or anxiety. Course Course Level of Care: Express Care Visit Vital Signs Vital signs: Vital Signs Temperature 98.5 F 11/25/25 15:39 Pulse Rate 83 11/25/25 15:39 Respiratory Rate 16 11/25/25 15:39 Blood Pressure 132/75 11/25/25 15:39 Pulse Oximetry 99 11/25/25 15:39 Oxygen Delivery Room Air 11/25/25 15:39 Temperature 98.5 F 11/25/25 15:39 Pulse Rate 83 11/25/25 15:39 Respiratory Rate 16 11/25/25 15:39 Blood Pressure 132/75 11/25/25 15:39 Pulse Oximetry 99 11/25/25 15:39 Oxygen Delivery Room Air 11/25/25 15:39 Reviewed [facility] Narrative Medical decision making narrative: 35-year-old female patient presents today complaining of sore throat, bilateral ear pain, frontal headache, and rhinorrhea. Symptoms began this morning. Denies cough, shortness of breath, difficulty swallowing. Currently rates her pain 5/10 and has tried no OTC treatment prior to arrival. Son was diagnosed with influenza B today. Upon exam, patient is mildly ill appearing. Remainder of exam is grossly normal. Influenza test negative. COVID negative, rapid strep negative. Strep culture pending. Influenza is likely falsely negative, or too early to be positive due to her exposure. Discussed [id number] medication use and duration of illness. Patient agrees with plan. Vital signs stable. Anticipatory guidance and ED precautions given. Differential Diagnosis Differential Diagnosis: Influenza, COVID, strep throat, URI, AOM, pharyngitis Lab Data [facility] Lab Attestation statement: I personally reviewed the patient's lab results. Labs: Lab Results 11/25/25 Range/Units 16:11 POC Influenza A Ag Negative (Negative) POC Influenza B Ag Negative (Negative) POC SARS CoV-2 Ag Negative (Negative) POC Grp A Strep Screen Negative (Negative) Critical Care Time Critical Care Time Critical Care Time: No Discharge Plan Discharge Clinical Impression: Exposure to influenza Upper respiratory infection Qualifiers: URI type: unspecified URI Qualified Code(s): J06.9 - Acute upper respiratory infection, unspecified Patient Disposition: Home Condition: Stable Instructions: Upper Respiratory Infection (DC) Additional Instructions: You have tested negative for influenza, COVID, and rapid strep today. You will be notified if your strep culture comes back positive, and appropriate antibiotics will be called in for you at that time. Due to your influenza exposure, your influenza swab baby falsely negative. Treat your symptoms with [id number] medication for symptom control. If symptoms worsen to include shortness of breath, chest pain, difficulty swallowing, please go to the ER immediately for further evaluation. Patient Language: Palauan Prescriptions: No Action No Home Medications Follow-up/Referrals: PHYSICIAN,CIRCULAR SAWYER STONE [Primary Care Provider, Internal Medicine] Stand Alone Forms: Work/School Release IP Time of Disposition: 16:21
== END 2025-11-25 16:31 | disposition home or self-care (01) ==
PROVIDERS: Emergency Provider Nurse Practitioner
DX: J06.9 Acute upper respiratory infection, unspecified (principal); Z20.828 Contact with and (suspected) exposure to other viral communicable diseases; Z20.822 Contact with and (suspected) exposure to COVID-19
CPT/HCPCS: 87081; 87426; 87804; 87880; 99213; G0463